=== PATIENT | female | born 1955 | race Hispanic/Latino ===

== ENCOUNTER 2017-02-23 16:27 | Inpatient (IN) | payer OTHER ==
[2017-02-23] VITALS (8 sets, daily range): BP systolic 154–177; BP diastolic 83–101; PULSE 80–107; RESP 18–32; O2SAT 91–97
[~2017-02-23] VITALS: Ht 157.5 cm; Wt 59.6 kg
[~2017-02-23 16:27] MED LIST: MULT1CAP33 PO; OMEP20CA11 PO
[2017-02-23 16:48] LABS: BASOPHILS % (AUTO) 0.3 % (0-3); MONOCYTES % (AUTO) 4.1 % (4-12); Mean Corpuscular Hemoglobin 29.5 pg (27.0-35.0); Mean Corpuscular Volume 87.8 fL (81-100); NEUTROPHILS % (AUTO) 68.4 % (40-74); Platelet Count 350 bil/L (150-400)
--- NOTE | 2017-02-23 17:09 | DRSVH ---
PROCEDURE: X-RAY CHEST ONE VIEW, PORTABLE ([id number]) INDICATIONS: CHEST PAIN TECHNIQUE: One view of the chest was acquired. COMPARISON: None. FINDINGS: Surgical changes and devices: None. Lungs and pleura: No pleural effusions or pneumothorax. Lungs are clear. Mediastinum: Mediastinal contours appear normal. Heart size is normal. Bones and chest wall: No suspicious bony lesions. Overlying soft tissues appear unremarkable. IMPRESSION: No acute process. Dictated by: Emilia Tee M.D. on 02/23/2017 at 17:08 Approved by: Emilai Tee M.D. on 02/23/2017 at 17:08
[2017-02-23 17:27] LABS: TROPONIN T < 0.010 ug/L (0.0-0.011)
[2017-02-23 17:35] LABS: Magnesium 2.2 mg/dL (1.6-2.6)
--- NOTE | 2017-02-23 18:36 | ED.REPORT ---
HPI-Chest Pain 40 and Over Date of Service February 23, 2017 ED Provider: William Price Patient is a 61 year old female who presents to the ED via EMS complaining of chest pain onset this morning. Associated symptoms include cough onset 3 days ago and SOB onset today. Her cough exacerbates her chest pain. She denies nausea , palpitations, diaphoresis, or any other symptoms. Upon arrival her O2 saturation was 88-92% on room air. She takes medication for sleeping and for a recent eye infection. Nursing Notes Stated Complaint: CP Chief Complaint: Chest Pain Nursing Notes Reviewed: Yes Allergies: Coded Allergies: No Known Drug Allergies (Verified Allergy, Unknown, 02/23/17) No Active Prescriptions or Reported Meds General Time Seen by MD: 18:35 Chief Complaint Chest pain Hx Obtained From: Patient Arrived By: Ambulance Sudden in Onset?: Yes Risk Factors )( CAD Risk Stratification SmokingNo Diabetes mellitus, No Hyperlipidemia, No Hypertension Risk factors reviewed )( TAD Risk Stratification No Aortic valve disease, No High intensity wt lifting, No Hypertension, No Risk factors reviewed )( PE Risk Stratification No , No Previous DVT, No Previous PE Risk factors reviewed Past Medical History Past Medical History Reports: GERD Past Surgical History Reports: Smoking History Current Every Day Smoker, Light Tobacco Smoker Social History Other Social History: Good social support Ambulatory Status Independent Review of Systems Respiratory: Reports: Non-productive cough, Shortness of breath Cardiovascular: Reports: Chest pain, Denies: Palpitations GI: Denies: Nausea Skin: Denies Diaphoresis Complete sys rev & neg: except as marked. Physical Exam Initial Vital Signs Vital Signs (First) Date Time Temp Pulse Resp B/P Pulse Ox O2 Delivery O2 Flow Rate FiO2 02/23/17 16:37 38.0 103 28 177/90 92 Nasal Cannula 3 Initial VS: Reviewed Head / Eyes: Atraumatic, Normocephalic Neck: Full range of motion Skin: Warm, Dry Neurologic: Alert, Oriented, Nonfocal Psychiatric: Mood/affect normal, Behavior normal, Normal thought content General/Constitutional: Awake, Alert, Well developed Respiratory / Chest: No rales Wheezing / Retractions: Positive: Wheezing expiratory (Diffuse ) Cardiovascular: Regular rhythm, Heart sounds NL, No gallop, No murmurs, No rubs Heart Rate / Rhythm: Positive: Tachycardia Abdomen: Soft, Non-tender Lower Extremity / Pelvis / MS: No edema Interpretation & Diagnostics Lab Results Interpretation Result Diagram: 02/23/17 1633 02/23/17 1633 Test 02/23/17 16:33 02/23/17 18:21 White Blood Count 12.0th/mm3 (3.8-10.1) Red Blood Count 5.25mil/mm3 (3.90-5.20) Hemoglobin 15.5g/dL (12.0-15.6) Hematocrit 46.1% (35.0-46.0) Mean Corpuscular Volume 87.8fL (81-100) Mean Corpuscular Hemoglobin 29.5pg (27.0-35.0) Mean Corpuscular Hemoglobin Concent 33.6% (32.0-37.0) Red Cell Distribution Width 12.7% (12.3-15.4) Platelet Count 350bil/L (150-400) Neutrophils (%) (Auto) 68.4% (40-74) Lymphocytes (%) (Auto) 24.9% (14-46) Monocytes (%) (Auto) 4.1% (4-12) Eosinophils (%) (Auto) 2.0% (0-5) Basophils (%) (Auto) 0.3% (0-3) Sodium Level 136mEq/L (134-144) Potassium Level 3.7mEq/L (3.5-5.2) Chloride Level 95mEq/L (97-108) Carbon Dioxide Level 25mmol/L (18-29) Blood Urea Nitrogen 14mg/dL (8-27) Creatinine 0.59mg/dL (0.57-1.00) Estimat Glomerular Filtration Rate 148mL/min (>59) Glucose Level 97mg/dL (60-99) Calcium Level 9.3mg/dL (8.5-10.1) Magnesium Level 2.2mg/dL (1.6-2.6) Total Bilirubin 0.3mg/dL (0.0-1.2) Aspartate Amino Transf (AST/SGOT) 28U/L (0-50) Alanine Aminotransferase (ALT/SGPT) 23U/L (0-32) Alkaline Phosphatase 114U/L (25-165) Troponin T < 0.010ug/L (0.0-0.011) Total Protein 9.5g/dL (6.4-8.4) Albumin 4.7g/dL (3.4-5.0) Hold Urine Received (Received) ECG Interpretation ECG Interpretation: Sinus rate 99 Time: 16:46 Interpreted by: ED physician X-Ray Chest Interpretation Chest Xray Interpretation: IMPRESSION: No acute process. Dictated by: Emilia Tee M.D. on 02/23/2017 at 17:08 Approved by: Emilia Tee M.D. on 02/23/2017 at 17:08 View: Portable, 1 view Interpretation / Wet Read by: Interpret - Radiologist CT Chest Interpretation IMPRESSION: 1. No acute process. No pulmonary embolus. 2. Small hiatal hernia. Dictated by: Emilia Tee M.D. on 02/23/2017 at 19:13 Approved by: Emilia Tee M.D. on 02/23/2017 at 19:16 Study type: CT pulm angiogram Interpretation / Wet Read by: Interpret - Radiologist Re-Eval/Medical Decision Time of Eval: 20:01 Re-Evaluation/Progress Note: Rechecked pt. Discussed lab and imaging results. Will road test Time of Eval: 20:31 Re-Evaluation/Progress Note: Discussed plan for admission. Patient understands and agrees with plan. All questions addressed at this time. Consultation : Referral / Consult Name: Radha Lee DO Consulted With: Hospitalist Call Returned at: 20:39 Information Technology Security Analyst: Will see patient, Agrees with eval, Agrees with plan, Accepts admit Note: Discussed pt case. Accepts admit. Counseled Regarding: Diagnosis, Lab results, Need for admission Discharge & Departure Primary Impression: COPD with exacerbation Additional Impression: Pneumonia Disposition: ADMITTED TO HOSPITAL Discharge Condition All VS Reviewed: Yes Condition: Stable Referrals: Tammie Hilliard (PCP) Scribe Attestation Portions of this note were transcribed by Mahin Carter. I, Dr. Price personally performed the history, physical exam and medical decision-making; I reviewed and confirmed the accuracy of the information in the transcribed note. Signed by: Mahin Carter 02/23/172038 copies to: Tammie Hilliard Kirk H MD February 23, 2017 18:36 MAHIN CARTER February 23, 2017 18:45 William Price MD February 23, 2017 18:36 MAHIN CARTER February 23, 2017 18:45
[2017-02-23] MEDS ORDERED: MethylprednisoLONE Sodium Succinate 62.5 mg/mL 2 mL Inj IVPUSH ONE (18:50)
[2017-02-23] MEDS ORDERED: Albuterol 2.5 mg/3 mL Inhalation Solution NEB ONE (18:50)
--- NOTE | 2017-02-23 19:18 | DRSVH ---
PROCEDURE: CT ANGIO CHEST PULMONARY EMBOLISM ([id number]) INDICATIONS: chest pain, tachycardia TECHNIQUE: After the administration of intravenous contrast, 2 mm thick sections acquired from the pulmonary api smitha to the posterior costophrenic angles. 3-dimensional maximum intensity projection (MIP) coronal a nd sagittal reformats were then acquired through the thorax. For radiation dose reduction, the follo wing was used: automated exposure control, adjustment of mA and/or kV according to patient size. COMPARISON: None. FINDINGS: Image quality: Excellent. Pulmonary arteries: Pulmonary arteries are normal in size, and demonstrate no intraluminal filling d efects to suggest central pulmonary embolism. Lungs and pleura: Lungs are clear. No pleural effusions or pneumothorax. Central and peripheral ai rways are patent. Mediastinum: Heart size is normal, without pericardial effusion. No mediastinal or hilar adenopathy . Thoracic aorta is normal in caliber and enhancement. Esophagus is normal in caliber. There is a s mall hiatal hernia. Bones and chest wall: No suspicious bony lesions. Ribs and thoracic spine appear intact throughout. Thyroid gland is within normal limits. No axillary or supraclavicular adenopathy. Abdomen: Visualized upper abdominal solid organs appear normal in the early arterial phase of enhanc ement. IMPRESSION: 1. No acute process. No pulmonary embolus. 2. Small hiatal hernia. Dictated by: Emilia Tee M.D. on 02/23/2017 at 19:13 Approved by: Emilia Tee M.D. on 02/23/2017 at 19:16
[2017-02-23] MEDS ORDERED: HYDROcodone-APAP 5-325 mg Tablet PO ONE (21:25)
[2017-02-23] MEDS ORDERED: Ondansetron 2 mg/mL 2 mL Inj IVPUSH PRN (21:50)
[2017-02-23] MEDS ORDERED: Alum-Mag Hydrox-Simeth 30 mL Suspension PO PRN (21:50)
[2017-02-23] MEDS ORDERED: Polyethylene Glycol (PEG) 17 Gm Powder PO PRN (21:50)
[2017-02-23] MEDS ORDERED: Albuterol 2.5 mg/3 mL Inhalation Solution NEB PRN (21:55)
[2017-02-23] MEDS ORDERED: cefTRIAXone Inj 2,000 MG in Dextrose 5% Minibag Plus 50 ML IV ONE (22:05)
[2017-02-23] MEDS ORDERED: Azithromycin Inj 500 MG in Dextrose 5% 250 ML IV ONE (22:05)
[2017-02-23] MEDS: 0.9% Sodium Chloride 1,000 ML IV SCH (22:10)
--- NOTE | 2017-02-23 22:17 | NUR ---
Admit Note Pt arrived to room 3018 at around 2200. Alert and oriented. Able to speak good [place], family at bedside. Independent and steady gait observed.
--- NOTE | 2017-02-23 22:48 | PCM.HPMED ---
Subjective Date of Service February 23, 2017 Primary Provider: Admitting Physician: Radha Lee DO Primary Care Physician: Tammie Hilliard Attending Physician: Radha Lee DO Admit Status: From the Emergency Department, Remote Telemetry Chief Complaint: Chest pain due to coughing History of Present Illness: Patient is a 61 year old female with history significant for GERD who presents to the ED via EMS complaining of chest pain onset this morning. Patient states the pain is located at the lower sternum and radiates to both sides of her chest. Aggravated by coughing. Associated symptoms include dry cough onset 3 days ago and SOB onset today. She denies nausea, palpitations, diaphoresis, or any other symptoms. 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 Patient did not use masks provided, due to it fogging up her glasses. Patient has never had asthma or had spirometry testing. Denies SOB or exacerbation of cough for the past 25 years. Upon arrival to ED, her O2 saturation was 88-92% on room air. She takes medication for sleeping and for a recent eye infection In ED, vitals T28.0, P103, R28, BP177/90. Labs significant for WBC 12.0 neutrophil 68%. CXR negative for any acute process. Patient admitted for further treatment and management. Review of Systems: A comprehensive review of systems has been conducted with the patient and found to be negative except what is mentioned in the HPI. Allergies Coded Allergies: No Known Drug Allergies (Verified Allergy, Unknown, 02/23/17) Home Medications Omeprazole 20mg PO QD PMH GERD Denies asthma Surgical History Family History Mother of pancreatic cancer at 73 Father of liver cancer at 63 Social History Hx Alcohol Use: Yes (Q 2-3 WEEKS) Hx Substance Use: No Hx Tobacco Use: Yes Smoking Status: Current Every Day Smoker, Light Tobacco Smoker Years of Smokin Living Arrangement: with Family (local resident with good support) Exam Vital Signs Vital Sign - Last Date Time Temp Pulse Resp B/P Pulse Ox O2 Delivery O2 Flow Rate FiO2 02/23/17 19:34 38.1 105 29 171/83 97 Nasal Cannula 3 Exam General: Awake and alert, in no respiratory distress on RA HEENT: NC/AT, PERRL, no sclera icterus, moist mucous membranes Neck: Supple, Non-tender, Full range of motion, no lymphadenopathy LUNGS: moderate diffused inspiratory and expiratory wheezes appreciated on bilateral lung space CV: RRR, normal S1, S2, Heart sounds normal, Intact radial, dorsal pedis pulses GI: Soft, non-tender, no guarding or rebound. normoactive bowel tones : no ricks in place MSK: Reproducible tenderness on palpation, most significant at lower sternum and moderate at lower anterior ribs. Extremities: No edema, no clubbing Skin: Warm, Dry, No cyanosis Neuro: Alert, Oriented, Nonfocal Lymph: no cervical or supraclavicular lymphadenopathy Psychiatric: Mood/affect normal, Behavior normal, Normal thought content Lab and Diagnostics Result Diagram: 02/23/17 1633 02/23/17 1633 X-Rays, CTs and MRIs Date of Service: 02/23/17 1642 PROCEDURE: X-RAY CHEST ONE VIEW, PORTABLE ([id number]) INDICATIONS: CHEST PAIN IMPRESSION: No acute process. Approved by: Emilia Tee M.D. on 02/23/2017 at 17:08 Date of Service: 02/23/17 1846 PROCEDURE: CT ANGIO CHEST PULMONARY EMBOLISM ([id number]) INDICATIONS: chest pain, tachycardia IMPRESSION: 1. No acute process. No pulmonary embolus. 2. Small hiatal hernia. Dictated by: Emilia Tee M.D. on 02/23/2017 at 19:13 Assessment & Plan Patient is a 61 year old female who presents to the ED via EMS complaining of chest pain onset this morning. Associated symptoms include cough onset 3 days ago and SOB onset today. Acute respiratory failure with hypoxemia, present on admission. Acute. - Oxygen saturation to be kept above 92% - secondary to COPD exacerbation SIRS (T38.0, P103, R28. WBC12.0) with no apparent source of infection - CXR negative for any acute process - BCx pending - CBC in am COPD exacerbation, present on admission. Acute. - patient received 125mg IV methylprednisone in ED - started on Rocephin after BCx taken, no obvious consolidation in CXR, reviewed - BCx, viral PCR pending - Duoneb [id number] sched - Albuterol q2h PRN - Solu-Medrol 125 mg Q8H, switch to Prednisone 40 mg daily when symptom improve - recommend spirometry as outpatient Chronic issues; GERD - continue home med: omeprazole Nicotine dependence - smoking cessation discussed with family agreeing - will provide nicotine patch upon request Patient status: Patient was admitted under inpatient status with expected length of stay greater than to midnights due to severity of presenting symptoms , risk of adverse event, and complexity of treatment plan. Pain Evaluation: Adequate Pain Control GI Prophylaxis: Proton Pump Inhibitor (home dose) VTE Prophylaxis: Sub-Q Heparin (Unfractionated) Resuscitation Status: CPR: Attempt Resuscitation Attending Statement The patient was seen and examined together with house staff on 02/23/2017 and I agree with the history, exam and plan as outlined in the note above. copies to: Tammie Hilliard Fumiko O DO February 23, 2017 22:00 Radha Lee DO February 24, 2017 04:45
[2017-02-23] MEDS: Albuterol-Ipratropium 3 mL Inhalation Solution NEB SCH (23:52)
[2017-02-24] VITALS (15 sets, daily range): BP systolic 116–158; BP diastolic 65–80; PULSE 74–118; RESP 16–26; O2SAT 92–98
[2017-02-24] MEDS: Heparin 5,000 Unit/mL Inj SUBQ SCH ×3 (00:17→17:27)
[2017-02-24] MEDS ORDERED: MethylprednisoLONE Sodium Succinate 40 mg/mL Inj IVPUSH SCH ×2 (00:30→08:30)
[2017-02-24] MEDS: Albuterol-Ipratropium 3 mL Inhalation Solution NEB SCH ×6 (05:20→23:51)
[2017-02-24 07:00] LABS: BASOPHILS % (AUTO) 0 % (0-3); EOSINOPHILS % (AUTO) 0 % (0-5); MONOCYTES % (AUTO) 0.3 % (4-12); Mean Corpuscular Hemoglobin 29.8 pg (27.0-35.0); Mean Corpuscular Volume 87.6 fL (81-100); NEUTROPHILS % (AUTO) 85.5 % (40-74); Platelet Count 313 bil/L (150-400)
[2017-02-24] MEDS ORDERED: KCl 40 mEq/D5W 500 mL 40 MEQ in IV Premix 1 EACH IV ONE (08:05)
[2017-02-24] MEDS: 0.9% Sodium Chloride 1,000 ML IV SCH ×2 (08:11→19:43)
[2017-02-24] MEDS: Pantoprazole 20 mg ER24 Tablet PO SCH (08:12)
[2017-02-24] MEDS: predniSONE 20 mg Tablet PO SCH (08:32)
--- NOTE | 2017-02-24 14:01 | NUR ---
SW - Screening Note Data: Pt is a 61 y/o female admitted 02/23/17 for COPD exacerbation per H&P. EMR reviewed. Pt's insurance is [employer] and PCP is Tammie HA. SW met with pt at bedside with family member present. Pt resides at home in [place] with her son and is independent with ADL's, drives POV. DPOA/Advanced Care Directive has not been completed and SW provided paperwork to review and complete. Pt is a daily smoker and SW offered smoking cessation resources. Pt declined but stated the MD has offered nicotine patches which she has accepted. Pt to discharge home via family when medically stable. NO needs assessed at this time. SW will continue to follow. Assessment: Pt who is independent at baseline Plan: Pt to discharge home via POV when medically stable. No needs assessed at this time. SW will continue to follow. FELICE Salazar
[2017-02-24] MEDS ORDERED: predniSONE 20 mg Tablet PO SCH (16:30)
--- NOTE | 2017-02-24 19:26 | PCM.PNMED ---
Subjective Date of Service February 24, 2017 Subjective Patient was seen and examined at bedside today. Patient states that her shortness of breath is improving while at rest however she still gets very short of breath with movement. Patient denies any chest pain, nausea, vomiting , diarrhea Overnight events: None Exam Vital Signs Vital Sign - Last Date Time Temp Pulse Resp B/P Pulse Ox O2 Delivery O2 Flow Rate FiO2 02/24/17 18:19 36.9 115 20 155/68 95 02/24/17 16:21 Nasal Cannula 1.00 Intake and Output 02/23/17 02/23/17 02/24/17 Cumulative From/Thru 15:00 23:00 07:00 02/23/17 16:37 - 02/24/17 06:21 Intake Total 200 ml 200 ml Balance 200 ml 200 ml Intake Oral 200 ml 200 ml # Voids 1 1 # Bowel Movements 0 0 Exam Physical Exam: GEN: Patient was awake, alert, responding appropriately to questions HEENT: Pupils equal round and reactive to light, extraocular eye muscles intact , Neck soft supple, trachea midline, nomocephalic/atraumatic CV: +S1/S2, regular rate and rhythm, no murmurs auscultated Respiratory: Positive for wheezes and rhonchi GI: +bowel sounds x4, soft, compressible, nontender to palpation EXT: no clubbing, cyanosis, edema Neuro: Cranial nerves II-XII grossly intact Psych: mood and affect were appropriate IVs and Medications Medications Reviewed: Medications were reviewed in detail Lab and Diagnostics Result Diagram: 02/24/17 0620 02/24/17 0620 X-Rays, CTs and MRIs Date of Service: 02/23/17 1642 PROCEDURE: X-RAY CHEST ONE VIEW, PORTABLE ([id number]) INDICATIONS: CHEST PAIN IMPRESSION: No acute process. Approved by: Emilia Tee M.D. on 02/23/2017 at 17:08 Date of Service: 02/23/17 2056 PROCEDURE: CT ANGIO CHEST PULMONARY EMBOLISM ([id number]) INDICATIONS: chest pain, tachycardia IMPRESSION: 1. No acute process. No pulmonary embolus. 2. Small hiatal hernia. Dictated by: Emilia Tee M.D. on 02/23/2017 at 19:13 Assessment & Plan Patient is a 61 year old female who presents to the ED via EMS complaining of chest pain onset this morning. Associated symptoms include cough onset 3 days ago and SOB onset today. Acute respiratory failure with hypoxemia, present on admission. Acute. Secondary to COPD exacerbation - Oxygen saturation to be kept above 88% -Prednisone 40 mg by mouth daily -DuoNeb's every 4 scheduled -Albuterol every 2 when necessary -Blood cultures pending -PCR positive for rhinovirus -Discontinue Rocephin SIRS (T38.0, P103, R28. WBC12.0) -Secondary to rhinovirus Chronic issues; GERD - continue home med: omeprazole Nicotine dependence - smoking cessation discussed with family agreeing - will provide nicotine patch upon request Disposition: Patient still needs a few days of support in the hospital to help get her through this virus. It has triggered her COPD the patient is requiring oxygen. Patient will be here for another 2-3 days. GI Prophylaxis: Proton Pump Inhibitor (home dose) VTE Prophylaxis: Sub-Q Heparin (Unfractionated) Resuscitation Status: CPR: Attempt Resuscitation Katelyn Goldman DO February 24, 2017 19:26
--- NOTE | 2017-02-24 19:50 | NUR ---
Oxygen Patient family put patient on 2 ltr O2 over night for shortness of breath-O2 sats 98%. Patient and family teaching given. Patient maintained O2 sats of 92-94 on 0.5 Ltr alternating at times on room air. Patient reporting decreased feelings of shortness of breath. Some increased shortness of breath reported with activity.
--- NOTE | 2017-02-24 19:54 | NUR ---
SOB P: Pt up moving about the room, reports shortness of breath. Auscultated lungs and could hear slight crackles in lower right lung on expiration. I: Put patient back on 2L nasal cannula. Asked her to sit down and relax rather than walking around. E: Returned 10 minutes later and pt resting comfortably with family in room. Reports SOB is better.
[2017-02-24] MEDS ORDERED: cefTRIAXone Inj 2,000 MG in Dextrose 5% Minibag Plus 50 ML IV SCH (23:00)
[2017-02-25] VITALS (12 sets, daily range): BP systolic 115–165; BP diastolic 65–87; PULSE 74–104; RESP 18–26; O2SAT 93–99
[2017-02-25] MEDS: Heparin 5,000 Unit/mL Inj SUBQ SCH ×3 (01:18→17:10)
[2017-02-25] MEDS ORDERED: TOBR5DRO OP (01:18)
[2017-02-25] MEDS ORDERED: AMIT10TA6 PO (01:18)
--- NOTE | 2017-02-25 03:14 | NUR ---
SOB Pt reports SOB with exertion. Pt put on 1/2 L of oxygen and HOB elevated to 30 degrees. Pt instructed to relax and take breaks during activities in order to decrease incidence of SOB. Call light within reach and pt instructed to use it when getting up. Will continue to monitor sats and SOB
[2017-02-25] MEDS: Albuterol-Ipratropium 3 mL Inhalation Solution NEB SCH ×5 (05:03→21:16)
[2017-02-25 07:00] LABS: Mean Corpuscular Hemoglobin 29.9 pg (27.0-35.0); Mean Corpuscular Volume 89.4 fL (81-100)
[2017-02-25] MEDS: 0.9% Sodium Chloride 1,000 ML IV SCH (09:02)
[2017-02-25] MEDS: predniSONE 20 mg Tablet PO SCH (09:03)
[2017-02-25] MEDS: Pantoprazole 20 mg ER24 Tablet PO SCH (09:03)
--- NOTE | 2017-02-25 19:29 | PCM.PNMED ---
Subjective Date of Service February 25, 2017 Subjective Patient was seen and examined at bedside today. Patient denies any chest pain, shortness of breath, nausea, vomiting, diarrhea. Patient states that she is feeling more lethargic today however her shortness of breath has improved significantly and is no longer needing oxygen. Overnight events: None Exam Vital Signs Vital Sign - Last Date Time Temp Pulse Resp B/P Pulse Ox O2 Delivery O2 Flow Rate FiO2 02/25/17 17:15 85 20 97 Room Air 02/25/17 13:17 36.7 145/73 2.00 Intake and Output 02/24/17 02/24/17 02/25/17 Cumulative From/Thru 15:00 23:00 07:00 02/23/17 16:37 - 02/25/17 06:56 Intake Total 2356 ml 1127 ml 3683 ml Balance 2356 ml 1127 ml 3683 ml Intake Oral 500 ml 250 ml 950 ml IV Total 1856 ml 877 ml 2733 ml # Voids 4 2 7 # Bowel Movements 0 Exam Physical Exam: GEN: Patient was awake, alert, responding appropriately to questions HEENT: Pupils equal round and reactive to light, extraocular eye muscles intact , Neck soft supple, trachea midline, nomocephalic/atraumatic CV: +S1/S2, regular rate and rhythm, no murmurs auscultated Respiratory: Mild wheezes significantly improved from yesterday GI: +bowel sounds x4, soft, compressible, nontender to palpation EXT: no clubbing, cyanosis, edema Neuro: Cranial nerves II-XII grossly intact Psych: mood and affect were appropriate IVs and Medications Medications Reviewed: Medications were reviewed in detail Lab and Diagnostics Result Diagram: 02/25/17 0645 02/25/17 0645 X-Rays, CTs and MRIs Date of Service: 02/23/17 1642 PROCEDURE: X-RAY CHEST ONE VIEW, PORTABLE ([id number]) INDICATIONS: CHEST PAIN IMPRESSION: No acute process. Approved by: Emilia Tee M.D. on 02/23/2017 at 17:08 Date of Service: 02/23/17 1846 PROCEDURE: CT ANGIO CHEST PULMONARY EMBOLISM ([id number]) INDICATIONS: chest pain, tachycardia IMPRESSION: 1. No acute process. No pulmonary embolus. 2. Small hiatal hernia. Dictated by: Emilia Tee M.D. on 02/23/2017 at 19:13 Assessment & Plan 61 year old female who presents to the ED via EMS complaining of chest pain onset this morning. Associated symptoms include cough onset 3 days ago and SOB onset today. Acute respiratory failure with hypoxemia, present on admission. Acute. Secondary to COPD exacerbation - Oxygen saturation to be kept above 88% -Prednisone 40 mg by mouth daily -DuoNeb's every 4 scheduled -Albuterol every 2 when necessary -Blood cultures negative 24 hours -PCR positive for rhinovirus -Discontinue Rocephin SIRS (T38.0, P103, R28. WBC12.0) -Secondary to rhinovirus Chronic issues; GERD - continue home med: omeprazole Nicotine dependence - smoking cessation discussed with family agreeing - will provide nicotine patch upon request Disposition: Patient still needs a few days of support in the hospital to help get her through this virus. It has triggered her COPD the patient is requiring oxygen. Patient will be here for another 2-3 days. GI Prophylaxis: Proton Pump Inhibitor (home dose) VTE Prophylaxis: Sub-Q Heparin (Unfractionated) Resuscitation Status: CPR: Attempt Resuscitation Katelyn Goldman DO February 25, 2017 19:29
--- NOTE | 2017-02-25 23:30 | NUR ---
Chest Pain Pt complained of tightness/crushing/pain in chest "4" out of 10. Pt reports pain is different compared to previous chest pain. STAT EKG. MD notified. No new orders at this time. Administered Tylenol for pain. Will continue to monitor. Addendum: 02/25/17 at 2342 by CATHERINE BUNN RN Chest pain Pt reports decrease in chest pain, 2/10. Resting in bed with eyes closed. Encouraged to report any changes in pain. Call light within reach, using appropriately. Continuing to monitor.
[2017-02-26] VITALS (7 sets, daily range): BP systolic 112–154; BP diastolic 55–90; PULSE 70–98; RESP 16–20; O2SAT 93–98
[2017-02-26] MEDS: Heparin 5,000 Unit/mL Inj SUBQ SCH ×2 (00:21→08:30)
[2017-02-26] MEDS: Albuterol-Ipratropium 3 mL Inhalation Solution NEB SCH ×4 (00:44→12:09)
[2017-02-26] MEDS: predniSONE 20 mg Tablet PO SCH (08:29)
[2017-02-26] MEDS: Pantoprazole 20 mg ER24 Tablet PO SCH (08:29)
[2017-02-26 09:17] LABS: BASOPHILS % (AUTO) 0.2 % (0-3); EOSINOPHILS % (AUTO) 0.3 % (0-5); Mean Corpuscular Hemoglobin 29.6 pg (27.0-35.0); Mean Corpuscular Volume 90.4 fL (81-100); NEUTROPHILS % (AUTO) 53.3 % (40-74); Platelet Count 297 bil/L (150-400)
[2017-02-26 09:45] LABS: Magnesium 2.3 mg/dL (1.6-2.6)
--- NOTE | 2017-02-26 14:26 | NUR ---
Social Work: Discharge Data: Pt is on day 3 of hospitalization. EMR reviewed. MANUFACTURING TEST TECHNICIAN spoke with MD who state pt will d/c today. No d/c planning needs at this time. MANUFACTURING TEST TECHNICIAN will continue to follow if needs arise. Assessment: Pt who is independent at baseline. Plan: Pt will d/c home via POV today once D/C orders complete. No d/c planning needs at this time. MANUFACTURING TEST TECHNICIAN will continue to follow if needs arise. FELICE Muro
--- NOTE | 2017-02-26 15:01 | PCM.DIMED ---
Discharge Instructions Date of Service February 26, 2017 Dates of Hospitalization February 23, 2017 at 21:11 Discharge Diagnosis Discharge Diagnosis Acute exacerbation of chronic Bronchitis with Exacerbation of COPD Diet No restrictions Activity No restrictions (The patient may return to her usual activities as tolerated.) Call your provider Fever or Chills, Shortness of breath, Bleeding, Chest pain, Vomitting, Excessive diarrhea, Weakness (unilateral) Patient Instructions Follow-up Provider: Tammie Hilliard Follow-up with PCP in: 1 week Nicolas Moss MD February 26, 2017 15:01
[2017-02-26] MEDS ORDERED: ZIT250 PO (15:10)
[2017-02-26] MEDS ORDERED: PANT20TA2 PO (15:10)
[2017-02-26] MEDS ORDERED: PRED-508 PO (15:10)
[2017-02-26] MEDS ORDERED: IPRA4AER IH (15:10)
--- NOTE | 2017-02-26 16:06 | NUR ---
Discharge Asked pt if they would like an asphalt patcher for reviewing discharge information, pt declined. Reviewed discharge paperwork, medications and care notes - disclaimer signed. IV DCd intact, all belongings with pt. Pt denies pain/SOB. Pt declined WC transportation, escorted pt out on foot to car, son driving pt home.
--- NOTE | 2017-02-27 00:30 | PCM.DC.MED ---
Discharge Summary Date of Service February 26, 2017 Dates of Hospitalization Date of Hospital Admission February 23, 2017 at 21:11 Date of Discharge: February 26, 2017 Providers: Admitting Physician: Radha Lee DO Primary Care Physician: Tammie Hilliard Attending Physician: Radha Lee DO Diagnosis at Time of Discharge Diagnosis at Time of Discharge Acute exacerbation of chronic Bronchitis with Exacerbation of COPD Procedures XRay, CTs & MRIs Date of Service: 02/23/17 1642 PROCEDURE: X-RAY CHEST ONE VIEW, PORTABLE ([id number]) INDICATIONS: CHEST PAIN IMPRESSION: No acute process. Approved by: Emilia Tee M.D. on 02/23/2017 at 17:08 Date of Service: 02/23/17 1846 PROCEDURE: CT ANGIO CHEST PULMONARY EMBOLISM ([id number]) INDICATIONS: chest pain, tachycardia IMPRESSION: 1. No acute process. No pulmonary embolus. 2. Small hiatal hernia. Dictated by: Emilia Tee M.D. on 02/23/2017 at 19:13 Brief History Patient is a 61 year old female with history significant for GERD who presents to the ED via EMS complaining of chest pain onset this morning. Patient states the pain is located at the lower sternum and radiates to both sides of her chest. Aggravated by coughing. Associated symptoms include dry cough onset 3 days ago and SOB onset today. She denies nausea, palpitations, diaphoresis, or any other symptoms. 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 Patient did not use masks provided, due to it fogging up her glasses. Patient has never had asthma or had spirometry testing. Denies SOB or exacerbation of cough for the past 25 years. Upon arrival to ED, her O2 saturation was 88-92% on room air. She takes medication for sleeping and for a recent eye infection In ED, vitals T28.0, P103, R28, BP177/90. Labs significant for WBC 12.0 neutrophil 68%. CXR negative for any acute process. Patient was admitted to the hospitalist service for further treatment and management. Hospital Course 61 year old female who presents to the ED via EMS complaining of chest pain onset this morning. Associated symptoms include cough onset 3 days ago and SOB onset today. Acute respiratory failure with hypoxemia, present on admission. Acute. Secondary to COPD exacerbation - Oxygen saturation to be kept above 88% -Prednisone 40 mg by mouth daily -DuoNeb's every 4 scheduled -Albuterol every 2 when necessary -Blood cultures negative 24 hours -PCR positive for rhinovirus -Discontinued Rocephin SIRS (T38.0, P103, R28. WBC12.0) -Secondary to rhinovirus Chronic issues; GERD - continue home med: omeprazole Nicotine dependence - smoking cessation discussed with family agreeing - will provide nicotine patch upon request Disposition: Patient is stable for discharge today and will be discharged home Exam Vital Signs (Last) Date Time Temp Pulse Resp B/P Pulse Ox O2 Delivery O2 Flow Rate FiO2 02/26/17 14:21 36.8 79 18 154/90 95 Room Air 02/25/17 13:17 2.00 Exam GEN: Patient was awake, alert, responding appropriately to questions. She is sitting up in a bedside chair without oxygen wanting to go home. HEENT: Pupils equal round and reactive to light, extraocular eye muscles intact , Neck soft supple, trachea midline, nomocephalic/atraumatic CV: +S1/S2, regular rate and rhythm, no murmurs auscultated Respiratory: Mild scattered wheezes again significantly improved from yesterday GI: +bowel sounds x4, soft, compressible, nontender to palpation EXT: no clubbing, cyanosis, edema Neuro: Cranial nerves II-XII grossly intact Psych: mood and affect were appropriate Test 02/23/17 16:33 02/23/17 18:21 02/26/17 09:00 Troponin T < 0.010ug/L (0.0-0.011) Hold Urine Received (Received) White Blood Count 10.3th/mm3 (3.8-10.1) Red Blood Count 4.36mil/mm3 (3.90-5.20) Hemoglobin 12.9g/dL (12.0-15.6) Hematocrit 39.4% (35.0-46.0) Mean Corpuscular Volume 90.4fL (81-100) Mean Corpuscular Hemoglobin 29.6pg (27.0-35.0) Mean Corpuscular Hemoglobin Concent 32.7% (32.0-37.0) Red Cell Distribution Width 13.9% (12.3-15.4) Platelet Count 297bil/L (150-400) Neutrophils (%) (Auto) 53.3% (40-74) Lymphocytes (%) (Auto) 39.5% (14-46) Monocytes (%) (Auto) 6.0% (4-12) Eosinophils (%) (Auto) 0.3% (0-5) Basophils (%) (Auto) 0.2% (0-3) Sodium Level 139mEq/L (134-144) Potassium Level 4.1mEq/L (3.5-5.2) Chloride Level 102mEq/L (97-108) Carbon Dioxide Level 24mmol/L (18-29) Blood Urea Nitrogen 14mg/dL (8-27) Creatinine 0.52mg/dL (0.57-1.00) Estimat Glomerular Filtration Rate 172mL/min (>59) Glucose Level 114mg/dL (60-99) Calcium Level 9.1mg/dL (8.5-10.1) Magnesium Level 2.3mg/dL (1.6-2.6) Total Bilirubin 0.2mg/dL (0.0-1.2) Aspartate Amino Transf (AST/SGOT) 17U/L (0-50) Alanine Aminotransferase (ALT/SGPT) 21U/L (0-32) Alkaline Phosphatase 82U/L (25-165) Total Protein 7.6g/dL (6.4-8.4) Albumin 3.9g/dL (3.4-5.0) Discharge Medications Discharge Medications Albuterol/Ipratropium (Combivent Respimat Inhal Rogers) 120 Spr/4 Gm Inhaler 1 PUFF IH QID Prescribed by: ANNY MOSS MD Azithromycin (Zithromax) 250 Mg Tablet 250 MG PO DAILY Prescribed by: ANNY MOSS MD Pantoprazole DR (Pantoprazole DR) 20 Mg Tablet.dr 20 MG PO DAILYAC Prescribed by: ANNY MOSS MD Prednisone (Deltasone) 20 Mg Tablet 10 MG PO DIRECTED Please take 4 tabs PO for three days then Please take 3 tabs PO for three days then Please take 2 tabs PO for three days then Please take 1 tab PO for three days then stop. Prescribed by: ANNY MOSS MD Tobramycin (Tobrex) 5 Ml Drops 1 DROP OP Q4H (Reported) As needed Amitriptyline (Amitriptyline) 10 Mg Tablet 10-20 MG PO HS PRN PRN For Insomnia ( Reported) Followup Plan Disposition: Patient being discharged home. Discharge Diet: No restrictions Discharge Activity: No restrictions (The patient may return to her usual activities as tolerated.) Follow-up Provider: Tammie Hilliard Follow-up with PCP in: 1 week Time spent Time spent on discharging this patient was greater than 35 minutes, over half of which was involved in counseling and coordination of care. Nicolas Moss MD February 27, 2017 00:30
== END 2017-02-26 16:25 | disposition home or self-care (01) | DRG 140 ==
LOC: SED 16:27 → MPC 21:11 → OBSVTOIN 21:11 → MPC 22:12
PROVIDERS: ADMIT Internal Medicine; ATTEND Internal Medicine
DX: J44.0 Chronic obstructive pulmonary disease with (acute) lower respiratory infection (principal); J96.01 Acute respiratory failure with hypoxia; J20.9 Acute bronchitis, unspecified; J44.1 Chronic obstructive pulmonary disease with (acute) exacerbation; K21.9 Gastro-esophageal reflux disease without esophagitis; F17.210 Nicotine dependence, cigarettes, uncomplicated; B97.89 Other viral agents as the cause of diseases classified elsewhere